=== PATIENT | female | born 1955 | race Caucasian/White ===

== ENCOUNTER 2019-04-19 23:47 | Emergency (ER) | payer OTHER, SELFPAY ==
[2019-04-19 23:54] VITALS: BP 117/77; PULSE 76; RESP 24; TEMP 36.7; O2SAT 98
[2019-04-20] MEDS: Acetaminophen 325 MG TAB 650 MG PO (00:20)
[2019-04-20] MEDS: Ibuprofen 600 MG TAB PO (00:20)
--- NOTE | 2019-04-20 00:22 | W.ED.GENAD ---
Discharge Plan Disposition Patient Disposition: HOME Condition: Stable Discharge Details Chief Complaint: Orthopedic Clinical Impression: Colles' fracture of left radius, Fracture of ulnar styloid, Contusion of rib on left side, Abrasion of leg, left, Contusion of left leg ED Provider: Nataliya Causey Home Meds and New Rx's Prescriptions: New oxycodone 5 mg tablet 5 mg PO QID PRN (Reason: pain) Qty: 10 RF: 0 Continued ibuprofen 200 mg Tablet 200 mg PO PRN PRNRF: 0 Discharge Instructions Instructions: Wrist Fracture in Adults (ED), Contusion in Adults (ED), Abrasion (ED), Rib Contusion (ED) Additional Instructions: Alternate Tylenol and Motrin as needed and directed for pain. Take the oxycodone for pain not relieved with Tylenol or Motrin. Rest, ice and elevate left arm as much as possible. Call Dr. Ríos orthopedics tomorrow morning if you decide to stay in the area for a follow-up appointment and to discuss whether any surgical intervention necessary. If you decide to go back home, call your primary care doctor as soon as possible tomorrow for referral to orthopedics for follow-up. Return to the emergency department if you develop any worsening or new concerning symptoms such as difficulty breathing, abdominal pain, or extremity weakness or numbness. Referrals: Black Ríos MD [ [facility]FF [facility]YSICIAN] - Discharge Data Discharge Physician: Nataliya Causey Medical Decision Making 63-year-old female with no significant past medical history who presents with left wrist and left rib injury after fall walking down steps out of the carletoner. Patient states she had 2 glasses of wine and smoked marijuana this evening and missed her step. She does not appear significantly intoxicated. She denies head injury, neck pain, back pain, abdominal pain. Main complaint is left wrist. There is a mild left wrist deformity with significant ecchymosis and edema. No open wounds. Neurovascularly intact. There is also minimal tenderness of left anterior inferior ribs but no step-off or crepitus. Lungs clear and equal breath sounds. Abdomen soft and nontender. No evidence of head trauma, C-spine/T-spine/L-spine nontender. Remainder of extremities without bony injury or deformity. She took 200 mg Motrin prior to arrival. Will give an additional 600 mg Motrin as well as 650 mg Tylenol and sent for left ribs and chest x-ray and left wrist and hand x-rays. 0045 --patient refused rib x-ray. She stated she did not have significant rib pain and mainly complained of her wrist pain she was informed that a rib contusion or fracture are treated the same, and with normal lung exam, this is reassuring but to be aware of any change in her symptoms. Her left hand and wrist x-rays noted a Colles' fracture with dorsal angulation and ulnar styloid fracture. A volar splint was placed. Patient neurovascularly intact. She was given a dose of oxycodone here and 1 tab for home. Patient states she is visiting from [facility] approximately 90 minutes away and she was planning on going back to their tomorrow. Discussed that she can follow-up with orthopedics here for reevaluation and whether surgical intervention is necessary. Patient placed on orthopedic follow-up list for call in the a.m. to Dr. Ríos to review x-rays and whether surgical intervention is necessary. Patient states she may travel back to [place] and follow-up with her primary and orthopedics there. Discussed that if she stays in the area, she is advised to call Dr. Ríos's office tomorrow morning for follow-up and to return to the ER with any concerns. Medical Records Medical records reviewed: Yes I reviewed the patient's medical records. Imaging Data Radiologic Study: Radiologist's impression: XR Left Hand EXAM DATE/TIME: 04/20/2019 12:19 AM CLINICAL HISTORY: 63 years old, female; Injury or trauma; Fall; Initial encounter; Blunt trauma (contusions or hematomas; Left; Injury date: 04/19/19; Injury details: Fell down camper stairs landing on wrist/hand TECHNIQUE: Imaging protocol: XR Left hand. Views: 3 or more views. COMPARISON: No relevant prior studies available. FINDINGS: Bones/joints: Typical for age. No evidence of acute fracture other than what is described in the wrist. Soft tissues: Unremarkable. IMPRESSION: No acute findings. XR Left Wrist EXAM DATE/TIME: 04/20/2019 12:19 AM CLINICAL HISTORY: 63 years old, female; Injury or trauma; Fall; Initial encounter; Blunt trauma (contusions or hematomas; Left; Injury date: 04/19/19; Injury details: Fell down camper stairs landing on wrist TECHNIQUE: Imaging protocol: XR Left wrist. Views: 3 or more views. COMPARISON: No relevant prior studies available. FINDINGS: Bones/joints: Comminuted fracture of the distal radial metaphysis with dorsal angulation. Ulnar styloid fracture. Soft tissues: Soft tissue swelling about the wrist. IMPRESSION: Colles fracture. HPI General Mode of arrival: ambulatory. Date/Time Provider Initiated Documentation: 04/19/19 23:49. Limitations to Documentation: no limitations. Information obtained by: patient. HPI Narrative: Patient is a 63-year-old female who presents with left wrist pain, left leg abrasions and left rib pain after fall stepping out of a camper prior to arrival. Patient states she drank 2 glasses of wine and smoked marijuana and attempted to exit a camper but missed her step and used her left wrist to brace her fall. She denies head injury. Her main complaint is her left wrist. She was able to ambulate after the fall and walk into the emergency department and denies any hip or knee pain. She is complaining of minimal left lower rib pain but denies any shortness of breath, abdominal pain, headache, neck or back pain. She took 200 mg of Motrin prior to arrival. Related Data Home Medications Medication Instructions Recorded Confirmed ibuprofen 200 mg PO PRN PRN 04/19/19 04/19/19 oxycodone 5 mg PO QID PRN #10 tab 04/20/19 Previous Rx's Medication Instructions Recorded oxycodone 5 mg PO QID PRN #10 tab 04/20/19 Allergies Allergy/AdvReac Type Severity Reaction Status Date / Time bee venom protein (honey bee) Allergy Severe Unverified 04/19/19 23:56 General Stated Complaint: Orthopedic DAVID: 4 Review of Systems Review of Systems All systems reviewed & are unremarkable except as noted in HPI and below Constitutional Reports as per HPI, Denies chills and Denies fever(s) Eyes Denies blurry vision ENT Denies dizziness, Denies sore throat and Denies throat swelling Cardiovascular Denies chest pain and Denies dyspnea Respiratory Denies cough and Denies dyspnea Gastrointestinal Denies abdominal pain, Denies diarrhea and Denies vomiting Genitourinary Denies hematuria and Denies dysuria Musculoskeletal Denies back pain and Denies numbness Integumentary/Breasts Denies lesions and Denies rash Neurologic Denies dizziness, Denies focal weakness and Denies numbness Allergic/Immunologic Denies throat swelling [facility] Medical History No significant past medical history (Acute) Surgical History Hx of cholecystectomy (Chronic) Social History Smoking/Tobacco Use Status: Never Alcohol Intake: current Alcohol Intake frequency: 0-2 drinks per day Substance use type: does not use Do you feel safe at home: Yes Do you feel safe in your relationship?: Yes Exam Const General: cooperative and healthy appearing Orientation: alert and awake HENMT Head: normal to inspection, normocephalic and atraumatic Ears: hearing grossly normal bilaterally and external ears normal General nose exam: external nose normal Face and sinus: normal facial exam Mouth: oral mucosae normal Teeth and gingiva: dentures Throat: posterior oropharynx normal Eyes General: appearance normal, both eyes and all related structures Eyelids: eyelids normal Pupils: PERRL EOM: EOM intact bilaterally Neck Neck: normal visual inspection Lymphatic: no lymphadenopathy noted Chest Chest: normal inspection of the chest Resp Effort & Inspection: normal respiratory effort and able to speak in complete sentences Auscultation: clear to auscultation bilaterally Cardio Rate: regular rate Rhythm: regular rhythm GI Inspection: normal to inspection Palpation: soft, not firm, no guarding, no hepatosplenomegaly, no masses and nontender Auscultation: normal bowel sounds Back/Spine/Pelvis Cervical Spine: No cervical spinal tenderness Thoracic/Lumbar Spine: No thoracic spinal tenderness and No lumbar spinal tenderness Pelvis: no pain with anterior-posterior compression Sacrum: no erythema, no swelling and no tenderness Skin General skin exam: no rashes or lesions noted Neuro General: alert and awake Cognition: normal cognition Speech: speech normal Gait: normal gait Motor: muscle tone normal throughout Sensory Exam: no sensory deficits noted Extrem Other: Left wrist notes edema and ecchymosis extending from medial wrist overlying ulnar styloid over to dorsal lateral hand and wrist. Mild deformity noted distally near hand. No open wounds. Left radial and ulnar pulses intact. Cap refill less than 2 seconds. There is superficial abrasions and ecchymosis noted to left proximal and mid thigh and left lateral leg extending from knee to just above lower leg. There is no bony deformity noted to remainder of extremities. No pain with range of motion of bilateral hips, knees, ankles, bilateral shoulders, bilateral elbows or right wrist or hand. Psych Appearance: grossly normal Mental Status: mental status grossly normal Speech and Movement: speech and movement normal Affect: normal affect Thought Process: normal Course Vital Signs Temperature 98.1 F 04/19/19 23:54 Pulse 76 04/19/19 23:54 Respiratory Rate 24 04/19/19 23:54 Blood Pressure 117/77 04/19/19 23:54 Pulse Oximetry 98 04/19/19 23:54 Temperature 98.1 F 04/19/19 23:54 Temperature Source Temporal Artery Scan 04/19/19 23:54 Pulse 76 04/19/19 23:54 Respiratory Rate 24 04/19/19 23:54 Respiratory Effort Non-Labored 04/19/19 23:58 Blood Pressure 117/77 04/19/19 23:54 Blood Pressure Position Sitting 04/19/19 23:54 Pulse Oximetry 98 04/19/19 23:54 Oxygen Delivery Method Room Air 04/19/19 23:54 Oxygen Flow Rate 0 04/19/19 23:54 Pain Level 10 04/19/19 23:58 Procedures Orthopedic Splinting/Casting Injury #1: Side: left Upper Extremity Injury Location: wrist Upper Extremity Immobilizer: volar splint Additional Comments: Neurovascularly intact pre-and post procedure.
--- NOTE | 2019-04-20 00:50 | DI.RAD_ITS ---
SYMPTOMS/DIAGNOSIS: PAIN, DEFORMITY, S/P FALL DOWN STAINS, ? ACUTE FRACTURE LEFT WRIST: There is a fracture extending mainly transversely through the distal radial metaphysis. There is significant dorsal angulation. There is some impaction as well as extension to the articular surface. The ulnar styloid is also fractured and displaced. The carpal bones appear intact. IMPRESSION: Comminuted, impacted, and angulated fracture of the distal radius. Ulnar styloid fracture. LEFT HAND: Comparison is made with the left wrist of the same day. Soft tissue swelling is seen around the wrist. Again noted is a distal radial fracture with dorsal angulation and impaction. The ulnar styloid fracture is also seen. No additional fractures are seen in the hand. IMPRESSION: Distal radial and ulnar styloid fractures.
--- NOTE | 2019-04-20 00:53 | DI.VRAD_ITS ---
EXAM: XR Left Wrist EXAM DATE/TIME: 04/20/2019 12:19 AM CLINICAL HISTORY: 63 years old, female; Injury or trauma; Fall; Initial encounter; Blunt trauma (contusions or hematomas; Left; Injury date: 04/19/19; Injury details: Fell down camper stairs landing on wrist TECHNIQUE: Imaging protocol: XR Left wrist. Views: 3 or more views. COMPARISON: No relevant prior studies available. FINDINGS: Bones/joints: Comminuted fracture of the distal radial metaphysis with dorsal angulation. Ulnar styloid fracture. Soft tissues: Soft tissue swelling about the wrist. IMPRESSION: Colles fracture. Dictated and Authenticated by: Griffin Patel MD. Ordering:HERMILA An MD
--- NOTE | 2019-04-20 00:54 | DI.VRAD_ITS ---
EXAM: XR Left Hand EXAM DATE/TIME: 04/20/2019 12:19 AM CLINICAL HISTORY: 63 years old, female; Injury or trauma; Fall; Initial encounter; Blunt trauma (contusions or hematomas; Left; Injury date: 04/19/19; Injury details: Fell down camper stairs landing on wrist/hand TECHNIQUE: Imaging protocol: XR Left hand. Views: 3 or more views. COMPARISON: No relevant prior studies available. FINDINGS: Bones/joints: Typical for age. No evidence of acute fracture other than what is described in the wrist. Soft tissues: Unremarkable. IMPRESSION: No acute findings. Dictated and Authenticated by: Griffin Patel MD. Ordering:HERMILA An MD
[2019-04-20] MEDS: oxyCODONE 5 MG TAB PO ×2 (01:25)
== END 2019-04-20 01:33 | disposition home or self-care (01) ==
PROVIDERS: Emergency Provider Physician Assistant
DX: S52.532A Colles' fracture of left radius, initial encounter for closed fracture (principal); S52.612A Displaced fracture of left ulna styloid process, initial encounter for closed fracture; S20.212A Contusion of left front wall of thorax, initial encounter; S70.12XA Contusion of left thigh, initial encounter; W10.8XXA Fall (on) (from) other stairs and steps, initial encounter
CPT/HCPCS: 99284; 73110; 73130; L3650